=== PATIENT | male | born 1975 | race Asian ===

== ENCOUNTER 2019-01-18 18:35 | Emergency (ER) | payer OTHER ==
[~2019-01-18] VITALS: Ht 157.5 cm; Wt 65.8 kg
[2019-01-18 19:12] VITALS: BP 129/76
--- NOTE | 2019-01-18 19:14 | NUR ---
PT AMBULATED TO LOBBY WITH VSS.
--- NOTE | 2019-01-18 20:09 | NUR ---
PATIENT PRESENTS TO ED WITH BIB SON WITH C/O AB PAIN X 4, - N/V/D, FREQ URINATION, - BLEED IN URINE, LBM:01/18/19 DENIES N/V/D; SKIN IS PINK/WARM/DRY; AAOX4 WITH EVEN AND STEADY GAIT; LUNGS CLEAR BL; HR EVEN AND REGULAR; PT DENIES ANY FEVER, CP, SOB, OR COUGH AT THIS TIME; PATIENT STATES PAIN OF 6/10 AT THIS TIME; VSS; PATIENT POSITIONED FOR COMFORT; HOB ELEVATED; BEDRAILS UP X2; BED DOWN. ER MD MADE AWARE OF PT STATUS.
--- NOTE | 2019-01-18 20:09 | NUR ---
PATIENT AMBULATED TO ER BED 12.
[2019-01-18] MEDS ORDERED: KETOROLAC 30 MG/ML VIAL IM ONE (20:35)
[2019-01-18 21:11] LABS: APPEARANCE,URINE CLEAR (CLEAR); BILIRUBIN,URINE NEGATIVE (NEGATIVE); BLOOD, URINE 3+ (NEGATIVE); COLOR,URINE YELLOW (YELLOW); LEUKOCYTE ESTERASE ,URINE NEGATIVE (NEGATIVE); NITRITE, URINE NEGATIVE (NEGATIVE); UGLUCOSE NEGATIVE (NEGATIVE)
[2019-01-18 21:42] LABS: RBC,URINE 11-20 (MOD) /HPF (0-5); WBC,URINE 0-5 (RARE) /HPF (0-5)
[2019-01-18 22:15] VITALS: BP 119/85
--- NOTE | 2019-01-18 22:15 | NUR ---
Patient discharged with v/s stable. Written and verbal after care instructions given and explained. Patient alert, oriented and verbalized understanding of instructions. Ambulatory with steady gait. All questions addressed prior to discharge. ID band removed. Patient advised to follow up with PMD. Rx of NORCO 5MG-325MG AND NAPROSYN 500MG given. Patient educated on indication of medication including possible reaction and side effects. Opportunity to ask questions provided and answered.
== END 2019-01-18 22:15 | disposition home or self-care (01) ==
LOC: MED 18:35
DX: N20.0 Calculus of kidney (principal)
CPT/HCPCS: 74176; 81001; 87086; 96372; 99284; J1885